=== PATIENT | male | born 1970 | race Caucasian/White ===

== ENCOUNTER 2016-08-06 08:59 | Emergency (ER) | payer OTHER ==
[~2016-08-06] VITALS: Ht 172.7 cm; Wt 140.6 kg
[~2016-08-06 08:59] MED LIST: METHADONE10 MG/5 M2 PO; PERCOCET 5-3251 EACH PO
[2016-08-06 09:31] LABS: ABSOLUTE BASOPHIL COUNT 0 /CUMM (0.0-0.2); ABSOLUTE EOSINOPHIL COUNT 0.1 /CUMM (0.0-0.7); ABSOLUTE GRANULOCYTE CT 6.2 /CUMM (1.4-6.5); ABSOLUTE LYMPH COUNT 1.5 /CUMM (1.2-3.4); ABSOLUTE MONOCYTE COUNT 0.4 /CUMM (0.10-0.60); BASOPHIL % 0.5 % (0.0-2.0); EOSINOPHIL % 1.2 % (0-5); GRANULOCYTE % 75.6 % (42.2-75.2); MEAN CORPUSCULAR HGB 29.5 PG (27.0-31.0); MEAN CORPUSCULAR HGB CONC 33.5 G/DL (33.0-37.0); MEAN CORPUSCULAR VOLUME 87.9 FL (80.0-94.0); MEAN PLATELET VOLUME 8.6 FL (7.4-10.4); PLATELET COUNT 207 /CUMM (130-400); RBC DISTRIBUTION WIDTH 13.4 % (11.5-14.5); RED BLOOD CELL CT 5.12 /CUMM (4.70-6.10); WHITE BLOOD CELL COUNT 8.2 /CUMM (4.8-10.8)
--- NOTE | 2016-08-06 09:39 | ED GENERAL ADULT ---
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 PT STATES THIS IS NEW FOR HIM. PT STATES HE HAS CHOKING EPISODES AND HE CAN'T CATCH HIS BREATH. PT DENIES CHEST PAIN BUT IS VERY DIAPHORETIC IN TRIAGE. Triage Nurses Notes Reviewed? yes HPI: Patient states that yesterday evening he was sitting on the couch watching TV when he felt like he was going to black out for approximately 2 seconds. Patient states that he felt his chin hit his chest and he woke right back up. Patient denies any chest pain or palpitations. Patient has never had anything like this happen before so became very concerned. While sleeping he felt like he could not breathe and woke up feeling even more anxious. Patient continued to deny chest pain or palpitations. Patient then went to the methadone clinic this morning and on his way home again he felt like he was, not off. Patient comes in for evaluation. Patient denies any nausea or vomiting. Patient denies any shortness of breath. There is no dyspnea on exertion. Patient feels very anxious. Past History Travel History Traveled to [place] past 21 day No Medical History Any Pertinent Medical History? 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 No Review of Systems Review of Systems Constitutional: Reports: no symptoms. EENTM: Reports: no symptoms. Respiratory: Reports: see HPI. Cardiovascular: Reports: no symptoms. GI: Reports: no symptoms. Genitourinary: Reports: no symptoms. Musculoskeletal: Reports: no symptoms. Skin: Reports: no symptoms. Neurological/Psychological: Reports: see HPI, anxiety. Hematologic/Endocrine: Reports: no symptoms. Immunologic/Allergic: Reports: no symptoms. All Other Systems: Reviewed and Negative Physical Exam Physical Exam General Appearance: well developed/nourished, alert, awake, anxious, mild distress Head: atraumatic, normal appearance Eyes: Bilateral: PERRL, EOMI. Ears, Nose, Throat: normal pharynx, normal ENT inspection Neck: normal inspection, supple, full range of motion, NO JVD Respiratory: normal breath sounds, chest non-tender, no respiratory distress, lungs clear Cardiovascular: regular rate/rhythm, normal peripheral pulses Gastrointestinal: normal bowel sounds, soft, non-tender, no organomegaly Back: normal inspection, normal range of motion Extremities: normal inspection, normal capillary refill, normal range of motion, no edema Neurologic/Psych: no motor/sensory deficits, awake, alert, oriented x 3, normal gait, normal mood/affect Skin: intact, normal color, warm/dry Lymphatic: no anterior cervical jennifer Core Measures ACS in differential dx? No CVA/TIA Diagnosis: No Severe Sepsis Present: No Septic Shock Present: No Progress Differential Diagnoses I considered the following diagnoses in my evaluation of the patient: [AMI, CHF, PULM EDEMA, PE, ELECTROLYTE ABNORMAILYT, FER] Plan of Care: Orders Procedure Date/time Status URINE DRUGS OF ABUSE 08/06 938 Complete URINALYSIS 08/06 938 Complete Add-on Test (ER Only) 08/06 937 Active Telemetry/Geomorphology Teacher 08/06 937 Active TROPONIN LEVEL 08/06 922 Complete D-DIMER 08/06 922 Complete B-TYPE NATRIURETIC PEP (BNP) 08/06 922 Complete COMPREHENSIVE METABOLIC PANEL 08/06 921 Complete CBC WITHOUT DIFFERENTIAL 08/06 921 Complete EKG 08/06 910 Active Laboratory Tests 08/06/16 0955: Urine Opiates Screen < 100.00, Methadone Screen > 735 H, Barbiturate Screen < 60, Ur Phencyclidine Scrn < 6.00, Amphetamines Screen < 100, U Benzodiazepines Scrn < 85, Urine Cocaine Screen < 50, Urine Cannabis Screen < 5.00, Urine Color YEL, Urine Clarity HAZY H, Urine pH 6.0, Ur Specific [place] 1.020, Urine Protein NEG, Urine Ketones NEG, Urine Nitrite NEG, Urine Bilirubin NEG, Urine Urobilinogen 0.2, Ur Leukocyte Esterase SMALL H, Ur Microscopic SEDIMENT EXAMINED, Urine RBC 1-3, Urine WBC 3-5 H, Ur Epithelial Cells MANY H, Urine Bacteria FEW H, Urine Mucus FEW, Urine Hemoglobin NEG, Urine Glucose NEG 08/06/16 0923: Anion Gap 11, Estimated GFR > 60, BUN/Creatinine Ratio 21.4, Glucose 165 H, Calcium 9.5, Total Bilirubin 0.4, AST 29, ALT 55, Alkaline Phosphatase 71, Troponin I < 0.01, Qfj-T-Mnsspmalglc Pept 44.4, Total Protein 7.3, Albumin 4.5, Globulin 2.8, Albumin/Globulin Ratio 1.6, D-Dimer High Sensitivty < 200, CBC w Diff NO MAN DIFF REQ, RBC 5.12, MCV 87.9, MCH 29.5, RDW 13.4, MPV 8.6, Gran % 75.6 H, Lymphocytes % 18.3 L, Monocytes % 4.4, Eosinophils % 1.2, Basophils % 0.5, Absolute Granulocytes 6.2, Absolute Lymphocytes 1.5, Absolute Monocytes 0.4 , Absolute Eosinophils 0.1, Absolute Basophils 0, PUBS MCHC 33.5 Diagnostic Imaging: Viewed by Me: Radiology Read. Discussed w/RAD: Radiology Read. CXR Impression: PATIENT: WENDY GANT PRESENT AGE: 46 PATIENT ACCOUNT NO: [id number] : 72 LOCATION: [facility] ORDERING PHYSICIAN: DEVONTE DEVLIN MD SERVICE DATE: 08/06/16 EXAM TYPE: RAD - XRY-CHEST XRAY, PA AND LATERAL EXAMINATION: XR CHEST CLINICAL INFORMATION: Shortness of breath in a 46-year-old male patient. COMPARISON: None TECHNIQUE: PA and lateral erect views of the chest. FINDINGS: No significant abnormality is noted involving the heart, lungs, mediastinum, bony thorax or soft tissues. IMPRESSION : No pneumonia or edema. DICTATED BY: CHARISSE SWANSON MD DATE/TIME DICTATED:1054 NAVAL ENGINEER:RAD.HERNANDEZ DATE/TIME TRANSCRIBED:08/06/16 / 1055 CONFIDENTIAL, DO NOT COPY WITHOUT APPROPRIATE AUTHORIZATION. <Electronically signed in Other Vendor System> SIGNED BY: CHARISSE SWANSON MD 08/06/16 1100 Initial ED EKG: NSR, no ST T wave changes Comments: Lab work and x-ray findings discussed with the patient. Patient will follow-up with [facility]. Patient advised that he needs an outpatient sleep study. Departure Departure Disposition: HOME OR SELF CARE Condition: Stable Clinical Impression Primary Impression: Dyspnea Referrals: PATIENT HAS NO PRIMARY CARE DR (PCP/Family) Additional Instructions: Follow-up with her from faculty practice. Somebody will call you if later today or tomorrow. Return if symptoms worsen or for any concerns. Departure Forms: Customer Survey General Discharge Information Critical Care Note Critical Care Note Critical Care Time: non-applicable
--- NOTE | 2016-08-06 11:00 | RADIOLOGY REPORT ---
EXAMINATION: XR CHEST CLINICAL INFORMATION: Shortness of breath in a 46-year-old male patient. COMPARISON: None TECHNIQUE: PA and lateral erect views of the chest. FINDINGS: No significant abnormality is noted involving the heart, lungs, mediastinum, bony thorax or soft tissues. IMPRESSION: No pneumonia or edema.
[2016-08-06 11:19] VITALS: BP 141/86
== END 2016-08-06 11:32 ==
LOC: ERH 08:59
PROVIDERS: Emergency Medicine
DX: R06.00 Dyspnea, unspecified (principal)
CPT/HCPCS: 80307; 81001; 93005; 93010